=== PATIENT | female | born 1935 | race Caucasian/White ===

== ENCOUNTER 2016-05-30 09:20 | Outpatient (CLI) | payer MEDICARE, OTHER ==
[2013-09-19 05:23] VITALS: BP 142/72
[2016-05-30 15:31] LABS: eGFR (African) 40; eGFR (Non-African) 33
== END 2016-05-30 09:22 ==
LOC: POD 09:20
PROVIDERS: ATTEND Podiatrist Public Medicine
DX: E11.9 Type 2 diabetes mellitus without complications (principal); B35.1 Tinea unguium; L84 Corns and callosities; L60.0 Ingrowing nail; M79.674 Pain in right toe(s); M79.675 Pain in left toe(s)
CPT/HCPCS: 11721; 36415; 80048; 83036; 84443; G0463

== ENCOUNTER 2016-08-29 10:10 | Outpatient (CLI) | payer MEDICARE, OTHER ==
[2013-09-19 05:23] VITALS: BP 142/72
== END 2016-08-29 10:11 ==
LOC: POD 10:10
PROVIDERS: ATTEND Podiatrist Public Medicine
DX: B35.1 Tinea unguium (principal); E11.9 Type 2 diabetes mellitus without complications; L84 Corns and callosities; L60.0 Ingrowing nail; M79.674 Pain in right toe(s); M79.675 Pain in left toe(s); M79.671 Pain in right foot; M79.672 Pain in left foot
CPT/HCPCS: 11721; G0463

== ENCOUNTER 2016-08-29 10:22 | Outpatient (CLI) | payer MEDICARE, OTHER ==
[2013-09-19 05:23] VITALS: BP 142/72
[2016-08-29 11:14] LABS: eGFR (African) > 60; eGFR (Non-African) 38
== END 2016-08-29 10:23 ==
LOC: LAB 10:22
PROVIDERS: ATTEND Family Medicine
DX: E11.9 Type 2 diabetes mellitus without complications (principal)
CPT/HCPCS: 36415; 80053; 80061; 82043; 83036

== ENCOUNTER 2016-11-27 10:40 | Outpatient (CLI) | payer MEDICARE, OTHER ==
[2013-09-19 05:23] VITALS: BP 142/72
[2016-11-27 12:05] LABS: eGFR (African) 43; eGFR (Non-African) 35
--- NOTE | 2016-11-27 13:50 | Diagnostic Imaging Report ---
LUIS SANDOVAL [facility] [address] [facility] [address] [place], [place]. [address] Report Submission Date: Nov 27, 2016 12:24:35 PM CDT Patient Study Name: LINDA RUTLEDGE Date: Nov 27, 2016 11:34:14 AM CDT Modality Type: CR Gender: F Description: PELVIS : 33 Institution: [facility] Physician: LUIS SANDOVAL Examination: Plain film pelvis History: Fall Comparison exams: None provided Findings: 5 views of the pelvis and hips demonstrates mild osteopenia. Right hip fixation hardware. No hip articular dislocation. Joint space narrowing. Superior and inferior pubic rami and iliac wings are without acute abnormality. Sacroiliac joint and lower lumbar degenerative changes. Scattered abdominal and pelvic phleboliths Impression: Osteopenia and degenerative changes. No acute fracture or dislocation. Electronically signed on Nov 27, 2016 12:24:35 PM CDT by: Jhon FRANKEL
== END 2016-11-27 10:42 ==
LOC: RAD 10:40
PROVIDERS: ATTEND Physician Assistant
DX: E11.9 Type 2 diabetes mellitus without complications (principal); E87.6 Hypokalemia
CPT/HCPCS: 36415; 73521; 80053; 83036

== ENCOUNTER 2016-12-03 11:51 | Outpatient (CLI) | payer MEDICARE, OTHER ==
[2013-09-19 05:23] VITALS: BP 142/72
--- NOTE | 2016-12-03 14:25 | Diagnostic Imaging Report ---
CAMRYN CASTILLO [facility] [address] [facility].[address] [address] Report Submission Date: Dec 03, 2016 1:14:14 PM CDT Patient Study Name: LINDA RUTLEDGE Date: Dec 03, 2016 12:02:15 PM CDT Modality Type: CR Gender: F Description: LOWER EXTREMITY : 33 Institution: [facility] Physician: CAMRYN CASTILLO Examination: Plain film knee History: Knee discomfort Findings: 3 views obtained of both the right and left knees. Left knee demonstrates a prosthetic device in place. No fracture or loosening. Right knee demonstrates articular spurring generalized osteopenia. Medial tibial plateau slightly angled inferiorly. Medial joint space narrowing. No joint effusion. Impression: Osteopenia and degenerative changes. Possible right medial tibial plateau fracture - can be further evaluated with either CT or MRI. Left hip prosthetic device in place - no fracture loosening. Electronically signed on Dec 03, 2016 1:14:14 PM CDT by: Jhon FRANKEL
== END 2016-12-03 11:52 ==
LOC: RAD 11:51
PROVIDERS: ATTEND Family Medicine
DX: M25.569 Pain in unspecified knee (principal)

== ENCOUNTER 2017-01-30 11:37 | Outpatient (CLI) | payer MEDICARE, OTHER ==
[2013-09-19 05:23] VITALS: BP 142/72
== END 2017-01-30 11:40 ==
LOC: POD 11:37
PROVIDERS: ATTEND Podiatrist Public Medicine
DX: B35.1 Tinea unguium (principal); M20.41 Other hammer toe(s) (acquired), right foot; M20.42 Other hammer toe(s) (acquired), left foot; M20.11 Hallux valgus (acquired), right foot; M20.12 Hallux valgus (acquired), left foot; M79.674 Pain in right toe(s); M79.675 Pain in left toe(s); M79.671 Pain in right foot; M79.672 Pain in left foot; L60.0 Ingrowing nail; E11.9 Type 2 diabetes mellitus without complications; L84 Corns and callosities
CPT/HCPCS: 11056; 11721; G0463

== ENCOUNTER 2017-02-07 10:48 | Outpatient (CLI) | payer MEDICARE, OTHER ==
[2013-09-19 05:23] VITALS: BP 142/72
--- NOTE | 2017-02-07 14:31 | Diagnostic Imaging Report ---
CAMRYN CASTILLO [facility] [address] [facility].[address] [address] Report Submission Date: Feb 07, 2017 1:02:00 PM CDT Patient Study Name: LINDA RUTLEDGE Date: Feb 07, 2017 11:31:48 AM CDT Modality Type: CR Gender: F Description: LOWER EXTREMITY : 33 Institution: [facility] Physician: CAMRYN CASTILLO Examination: Plain film knee History: Knee discomfort Findings: 3 views of the right and left knees. Left knee prosthesis. Right knee demonstrates tibial spine spurring and medial joint space narrowing. No fracture. No dislocation. No joint effusion. Posterior vascular calcifications. Impression: Left knee prosthesis. Moderate right knee articular degenerative changes. No evidence for fracture. Electronically signed on Feb 07, 2017 1:02:00 PM CDT by: Jhon FRANKEL
--- NOTE | 2017-02-07 14:32 | Diagnostic Imaging Report ---
CAMRYN CASTILLO [facility] [address] [facility] [address] [address] Report Submission Date: Feb 07, 2017 1:03:49 PM CDT Patient Study Name: LINDA RUTLEDGE Date: Feb 07, 2017 11:43:17 AM CDT Modality Type: CR Gender: F Description: PELVIS : 33 Institution: [facility] Physician: CAMRYN CASTILLO Examination: Plain film hip History: Hip discomfort Comparison exams: None provided Findings: 2 views of the hip demonstrate normal cortical margins. No fracture no dislocation. Articular degenerative spurring. No soft tissue abnormality. Impression: Degenerative changes. No acute osseous abnormality. Electronically signed on Feb 07, 2017 1:03:49 PM CDT by: Jhon FRANKEL
== END 2017-02-07 10:50 ==
LOC: RAD 10:48
PROVIDERS: ATTEND Family Medicine
DX: M15.9 Polyosteoarthritis, unspecified (principal)

== ENCOUNTER 2017-04-23 08:41 | Outpatient (CLI) | payer MEDICARE, OTHER ==
[2013-09-19 05:23] VITALS: BP 142/72
== END 2017-04-23 08:42 ==
LOC: LABRHC 08:41
PROVIDERS: ATTEND Family Medicine
DX: E11.9 Type 2 diabetes mellitus without complications (principal)
CPT/HCPCS: 83036

== ENCOUNTER 2017-05-29 11:09 | Outpatient (CLI) | payer MEDICARE, OTHER ==
[2013-09-19 05:23] VITALS: BP 142/72
== END 2017-05-29 11:10 ==
LOC: POD 11:09
PROVIDERS: ATTEND Podiatrist Public Medicine
DX: B35.1 Tinea unguium (principal); E11.9 Type 2 diabetes mellitus without complications; L84 Corns and callosities; L60.0 Ingrowing nail; M79.671 Pain in right foot; M79.672 Pain in left foot; M79.674 Pain in right toe(s); M79.675 Pain in left toe(s); M20.11 Hallux valgus (acquired), right foot; M20.12 Hallux valgus (acquired), left foot; M20.41 Other hammer toe(s) (acquired), right foot; M20.42 Other hammer toe(s) (acquired), left foot
CPT/HCPCS: 11721; G0463

== ENCOUNTER 2017-08-28 09:12 | Outpatient (CLI) | payer MEDICARE, OTHER ==
[2013-09-19 05:23] VITALS: BP 142/72
== END 2017-08-28 09:13 ==
LOC: POD 09:12
PROVIDERS: ATTEND Podiatrist Public Medicine
DX: B35.1 Tinea unguium (principal); E11.9 Type 2 diabetes mellitus without complications; L84 Corns and callosities; L60.0 Ingrowing nail; M79.671 Pain in right foot; M79.672 Pain in left foot; M79.674 Pain in right toe(s); M79.675 Pain in left toe(s); M20.11 Hallux valgus (acquired), right foot; M20.12 Hallux valgus (acquired), left foot; M20.41 Other hammer toe(s) (acquired), right foot; M20.42 Other hammer toe(s) (acquired), left foot
CPT/HCPCS: 11721; G0463

== ENCOUNTER 2017-10-23 10:03 | Outpatient (CLI) | payer MEDICARE, OTHER ==
[2013-09-19 05:23] VITALS: BP 142/72
[2017-10-23 10:54] LABS: eGFR (African) > 60; eGFR (Non-African) 42
== END 2017-10-23 10:04 ==
LOC: LAB 10:03
PROVIDERS: ATTEND Family Medicine
DX: E11.9 Type 2 diabetes mellitus without complications (principal); I10 Essential (primary) hypertension
CPT/HCPCS: 36415; 80053; 80061; 82043; 83036

== ENCOUNTER 2017-10-29 11:03 | Outpatient (CLI) | payer MEDICARE, OTHER ==
[2013-09-19 05:23] VITALS: BP 142/72
--- NOTE | 2017-10-29 15:56 | Diagnostic Imaging Report ---
CAMRYN CASTILLO [facility] [address] [facility].[address] [address] Report Submission Date: Oct 29, 2017 3:39:41 PM CDT Patient Study Name: LINDA RUTLEDGE Date: Oct 29, 2017 11:18:17 AM CDT Modality Type: US Gender: F Description: : 33 Institution: [facility] Physician: CAMRYN CASTILLO Examination: Ultrasound vein bilaterally History: Leg swelling negative for dvt calf veins not well identified (Hx) Findings: Sonographic evaluation of the lower extremity venous system from the groin to the popliteal fossa inclusive bilaterally. Normal compressibility. No luminal filling defect. Normal waveforms and response to augmentation. No popliteal region fluid collection. Impression: No evidence for deep venous thrombosis. Electronically signed on Oct 29, 2017 3:39:41 PM CDT by: Jhon FRANKEL
== END 2017-10-29 11:05 ==
LOC: RAD 11:03
PROVIDERS: ATTEND Family Medicine
DX: M79.89 Other specified soft tissue disorders (principal)
CPT/HCPCS: 93970

== ENCOUNTER 2017-12-11 09:24 | Outpatient (CLI) | payer MEDICARE, OTHER ==
[2013-09-19 05:23] VITALS: BP 142/72
== END 2017-12-11 09:26 ==
LOC: POD 09:24
PROVIDERS: ATTEND Podiatrist Public Medicine
DX: B35.1 Tinea unguium (principal); E11.9 Type 2 diabetes mellitus without complications; L84 Corns and callosities; L60.0 Ingrowing nail; M79.671 Pain in right foot; M79.672 Pain in left foot; M79.674 Pain in right toe(s); M79.675 Pain in left toe(s); M20.11 Hallux valgus (acquired), right foot; M20.12 Hallux valgus (acquired), left foot; M20.41 Other hammer toe(s) (acquired), right foot; M20.42 Other hammer toe(s) (acquired), left foot
CPT/HCPCS: 11721; G0463

== ENCOUNTER 2018-03-18 11:54 | Outpatient (CLI) | payer MEDICARE, OTHER ==
[2013-09-19 05:23] VITALS: BP 142/72
[2018-03-18 12:39] LABS: eGFR (Non-African) 38
--- NOTE | 2018-03-18 15:19 | Diagnostic Imaging Report ---
CAMRYN CASTILLO [facility] [address] [address] Report Submission Date: Mar 18, 2018 12:46:40 PM CDT Patient Study Name: LINDA RUTLEDGE Date: Mar 18, 2018 12:17:15 PM CDT Modality Type: DX Gender: F Description: SHOULDER : 33 Institution: [facility] Physician: CAMRYN CASTILLO Right shoulder History: Pain. No known injury Three views of the right shoulder demonstrate movement of the humeral head into internal and external rotation without evidence for acute fracture or dislocation. The AC joint is intact. There are no significant degenerative findings. Impression: No osseous abnormality. Electronically signed on Mar 18, 2018 12:46:40 PM CDT by: Eli FRANKEL
--- NOTE | 2018-03-18 15:19 | Diagnostic Imaging Report ---
CAMRYN CASTILLO [facility] [address] [address] Report Submission Date: Mar 18, 2018 12:46:05 PM CDT Patient Study Name: LINDA RUTLEDGE Date: Mar 18, 2018 12:09:23 PM CDT Modality Type: DX Gender: F Description: UPPER EXTREMITY : 33 Institution: [facility] Physician: CAMRYN CASTILLO Right elbow History: Pain. No known injury AP and lateral projections of the right elbow demonstrate no osseous abnormality and no joint effusion. Impression: Unremarkable right elbow. Electronically signed on Mar 18, 2018 12:46:05 PM CDT by: Eli FRANKEL
== END 2018-03-18 11:55 ==
LOC: LAB 11:54
PROVIDERS: ATTEND Family Medicine
DX: M79.601 Pain in right arm (principal); M25.511 Pain in right shoulder; E11.9 Type 2 diabetes mellitus without complications; I10 Essential (primary) hypertension
CPT/HCPCS: 36415; 73030; 73070; 80053; 83036

== ENCOUNTER 2019-02-18 17:15 | Outpatient (CLI) | payer MEDICARE, OTHER ==
[2013-09-19 05:23] VITALS: BP 142/72
[2019-03-03 10:36] LABS: A1C 6.1 % (<5.7); HDL 31 mg/dL (>40); eGFR (Non-African) 34
== END 2019-02-18 17:25 ==
LOC: LABRHC 17:15
PROVIDERS: ATTEND Family Medicine
DX: E11.9 Type 2 diabetes mellitus without complications (principal)
CPT/HCPCS: 80053; 80061; 82043; 83036